=== PATIENT | female | born 1975 | race Caucasian/White ===

== ENCOUNTER 2017-04-19 10:06 | Emergency (ER) | payer BC ==
--- NOTE | ~2017-04-19 | CR72 ---
[facility]. [facility] A Service of [facility] & [facility] RADIOLOGY TEXT RESULTS PATIENT: BHAVNA CARR LOCATION: SED : 71 UNIT #: [id number] AGE: [address]: Robson Foley MD SEX: F ORDER DR: [id number] [place] [address] [id number] E MR#: [id number] Acc #: [id number] NAME: BHAVNA CARR : 1975 SEX: F STUDY DATE/TIME: 04/19/2017 13:10 UNIT: SED ROOM: STUDY DESCRIPTION: CR Chest Single View Portable Attending Physician: Robson Foley M.D. Ordering Physician: Robson Foley M.D. Primary Care Physician: Marium Alfred M.D. MEDICAL IMAGING REPORT This report is preliminary unless electronic signature is present. EXAM Portable chest, 1 view, 04/19/2017. COMPARISON 12/17/2015 HISTORY Short of air, near-syncope, symptoms for 1 day. FINDINGS Submaximal inspiration, but otherwise negative. Heart size is probably exaggerated by submaximal inspiratory effort. There is no consolidation or effusion or pneumothorax. IMPRESSION Submaximal inspiration, otherwise negative. Dictated by... Hector Chapin M.D. THIS IS AN ELECTRONICALLY VERIFIED REPORT Hector Chapin M.D. at 04/20/2017 5:00 PM TEV/pc TD: 04/19/2017 14:25 JOB #: [id number] MEDICAL IMAGING REPORT Page 1 of 1
--- NOTE | ~2017-04-19 | EKG ---
PATIENT: BHAVNA CARR UNIT #: [id number] Ventricular Rate: 66 BPM Atrial Rate: 66 BPM P-R Interval: 124 ms QRS Duration: 74 ms Q-T Interval: 420 ms QTC Calculation(Bezet): 440 ms P [place]: 20 degrees Calculated R [place]: 30 degrees Calculated T [place]: 19 degrees Diagnosis Line: Normal sinus rhythm Diagnosis Line: Normal ECG Diagnosis Line: When compared with ECG of 24-NOV-2014 15:25, Diagnosis Line: Minimal criteria for Inferior infarct are no Diagnosis Line: longer Present Diagnosis Line: Confirmed by BECKIE REMY MD ([id number]) on Diagnosis Line: 04/21/2017 8:03:38 AM INTERPRETING MD: SANDRITA BORGES
--- NOTE | ~2017-04-19 | CT71 ---
[facility] A Service [facility] RADIOLOGY TEXT RESULTS PATIENT: BHAVNA CARR LOCATION: SED : 71 UNIT #: [id number] AGE: [address]: Robson Foley MD SEX: F ORDER DR: [id number] [place] [address] [id number] E MR#: [id number] Acc #: [id number] NAME: BHAVNA CARR : 1975 SEX: F STUDY DATE/TIME: 04/19/2017 13:02 UNIT: SED ROOM: STUDY DESCRIPTION: CT Head Wo Contrast Attending Physician: Robson Foley M.D. Ordering Physician: Robson Foley M.D. Primary Care Physician: Marium Alfred M.D. MEDICAL IMAGING REPORT This report is preliminary unless electronic signature is present. EXAM Head CT no contrast, 04/19/2017. PROCEDURE Axial unenhanced head CT. This CT exam was performed with one or more of the following radiation dose reduction techniques: automatic exposure control, adjustment of mA and/or kV according to patient size, and iterative reconstruction. COMPARISON None. CLINICAL HISTORY Dizziness onset today with fullness in both ears for several weeks. FINDINGS Brain parenchymal density is normal. There is no intracranial hemorrhage. There is no hydrocephalus or extraaxial fluid collection. Skull base and calvarium and extracranial soft tissues are normal. IMPRESSION Normal negative unenhanced head CT. Dictated by... Hector Chapin M.D. THIS IS AN ELECTRONICALLY VERIFIED REPORT Hector Chapin M.D. at 04/20/2017 5:00 PM TEV/bd TD: 04/19/2017 14:24 [facility] A Service [facility] RADIOLOGY TEXT RESULTS PATIENT: BHAVNA CARR LOCATION: SED : 71 UNIT #: [id number] AGE: [address]: Robson Foley MD SEX: F ORDER DR: JOB #: [id number] MEDICAL IMAGING REPORT Page 1 of 1
[~2017-04-19 10:06] MED LIST: ALBUTEROL17 GM NEB; AVELOX400 MG PO; CYANOCOBALAM1000 MCG PO; DESYREL100 MG PO; DICYCLOMINE HCL10 MG PO; DIPHENOXYLATE/A1 TA2 PO; GLUCOPHAGE XR500 MG PO; LEXAPRO20 MG PO; METFORMIN HCL750 MG PO; MICROZIDE12.5 M1; PHENTERMINE HCL15 MG PO; PRAVACHOL20 MG PO; PRILOSEC PO; PROAIR HFA8.5 GM IH; SINGULAIR PO; SOLU MEDROL IV; STOOL SOFTENER100 M1 PO; SYMBICORT INH; TOPAMAX25 MG PO; WELLBUTRIN PO
[2017-04-19] MEDS ORDERED: PAXIL (10:11)
[2017-04-19 12:18] LABS: POC - CKMB <1.0 ng/mL (0.0-7.9); POC - MYOGLOBIN 40.3 ng/mL (0.0-169.0); POC - TROPONIN <0.05 ng/mL (<=0.05)
[2017-04-19 12:23] LABS: BASOPHIL# 0.1 X10e3 (0-0.3); BASOPHIL% 1.3 % (0-2.5); EOSINOPHIL# 0.1 X10e3 (0-0.7); EOSINOPHIL% 2.2 % (0.0-7.0); HEMATOCRIT 38.5 % (35.0-45.0); HEMOGLOBIN 12.8 gm/dL (12.0-16.0); LYMPHOCYTE# 1.6 X10e3 (1.0-3.5); LYMPHOCYTE% 34.1 % (17.0-45.0); MEAN CELL VOLUME 88.2 FL (83-96); MEAN CORPUSCULAR HEMOGLOBIN 29.4 PG (28-34); MEAN CORPUSCULAR HGB CONC 33.4 g/dL (30-36); MEAN PLATELET VOLUME 7.7 FL (6.5-11.5); MONOCYTE# 0.4 X10e3 (0-1.0); MONOCYTE% 8.5 % (3.0-12.0); NEUTROPHIL# 2.5 X10e3 (1.5-7.1); NEUTROPHIL% 53.9 % (40-75); PLATELET COUNT 329 X10e3 (140-420); RED BLOOD COUNT 4.36 X10e (3.90-5.30); RED CELL DISTRIBUTION WIDTH 14.7 % (11.0-15.5); WHITE BLOOD COUNT 4.6 X10e3 (4.0-10.5)
[2017-04-19 12:41] LABS: DIFF IND NO
[2017-04-19 13:12] LABS: ALBUMIN SERUM 3.9 g/dL (3.5-5.0); BILIRUBIN, DIRECT 0.1 mg/dL (0.0-0.2); BILIRUBIN,INDIRECT 0.2 mg/dL (0.0-0.9); BILIRUBIN,TOTAL 0.3 mg/dL (0.2-2.0); CALCIUM SERUM 8.3 mg/dL (8.4-10.2); CREATININE SERUM 0.6 mg/dL (0.6-1.4); GLOM FILT RATE Estimated 110.9 mL/min (>60); POTASSIUM 3.8 mmol/L (3.5-5.1); PROTEIN TOTAL SERUM 6.5 g/dL (6.0-8.3)
== END 2017-04-19 15:01 | disposition home or self-care (01) ==
LOC: SED 10:06
PROVIDERS: Emergency Medicine
DX: H83.01 Labyrinthitis, right ear (principal); H66.91 Otitis media, unspecified, right ear; J01.20 Acute ethmoidal sinusitis, unspecified; F41.9 Anxiety disorder, unspecified; R06.4 Hyperventilation; I10 Essential (primary) hypertension; E11.9 Type 2 diabetes mellitus without complications; Z90.49 Acquired absence of other specified parts of digestive tract; Z90.710 Acquired absence of both cervix and uterus; Z79.899 Other long term (current) drug therapy; Z88.1 Allergy status to other antibiotic agents; Z88.5 Allergy status to narcotic agent; Z88.8 Allergy status to other drugs, medicaments and biological substances
CPT/HCPCS: 36415; 70450; 71010; 80048; 80076; 82553; 82947; 83874; 84484; 85025; 85379; 93005; 96360; 96361; 99285